=== PATIENT | male | born 1995 | race Caucasian/White ===

== ENCOUNTER 2019-12-11 14:01 | Outpatient (CLI) | payer OTHER, SELFPAY ==
--- NOTE | 2019-12-11 14:09 | XR_ITS ---
WS: [id number] XR foot RT min 3V* [id number] REASON FOR EXAM: right fifth digit pain and swelling FINDINGS: The distal phalanx of the fifth digit proximally shows a small benign cysts. There is soft tissue swelling of the fifth phalanx. The remaining phalanges metatarsals and tarsals were normal. The calcaneus was normal. XR/XR foot RT min 3V* [id number] IMPRESSION: Benign cyst of the distal fifth phalanx Swelling the fifth phalanx No definite fractures or destructive changes.
== END 2019-12-11 14:02 | disposition home or self-care (01) ==
PROVIDERS: PCP Family Medicine; Visit Provider Family Medicine
DX: M79.89 Other specified soft tissue disorders (principal); M85.671 Other cyst of bone, right ankle and foot; M79.674 Pain in right toe(s)
CPT/HCPCS: 73630

== ENCOUNTER 2021-11-28 07:07 | Outpatient (CLI) | payer OTHER, SELFPAY ==
--- NOTE | 2021-11-28 07:20 | USCV_ITS ---
Valente Fagan Age: 26 Gender: M : 1995 Exam Date: 11/28/2021 07:35 Ordering Phys: David Murillo Technologist: CANDY Exam Location: [facility] [place] Indication: abnormal heart beat BP: 130 / 80 HR: 79 Rhythm: Sinus Technical Quality: Adequate MEASUREMENTS (Male / Female) Normal Values 2D ECHO LV Diastolic Diameter PLAX 4.8 cm 4.2 - 5.9 / 3.9 - 5.3 cm LV Systolic Diameter PLAX 3.6 cm IVS Diastolic Thickness 1.2 cm 0.6 - 1.0 / 0.6 - 0.9 cm IVS Systolic Thickness 1.6 cm LVPW Diastolic Thickness 1.1 cm 0.6 - 1.0 / 0.6 - 0.9 cm LVPW Systolic Thickness 1.5 cm LVOT Diameter 2.3 cm LV Ejection Fraction 2D Teich 44.5 % LV Ejection Fraction MOD 2C 66.9 % LV Ejection Fraction 2C AL 67.8 % LA Diameter 2.8 cm Aorta at Sinotubular Diameter 2.6 cm M-MODE Aortic Annulus Diameter 2.9 cm LA Ao Ratio MM 1.3 MV E Point Septal Separation 1.0 cm DOPPLER AV Peak Velocity 82.0 cm/s LVOT Peak Velocity 69.0 cm/s AV Area Cont Eq vti 3.7 cm squared AV Area Cont Eq pk 3.4 cm squared MV Area PHT 4.3 cm squared Mitral E to A Ratio 0.9 MV E' Velocity 28.0 cm/s Mitral E to MV E' Ratio 6.9 Mitral E to LV E' Lateral Ratio 6.8 Mitral E to LV E' Septal Ratio 7.1 TR Peak Velocity 99.0 cm/s TR Peak Gradient 3.9 mmHg Right Atrial Pressure 3.0 mmHg Pulmonary Artery Systolic Pressu 6.9 mmHg PV Peak Velocity 85.0 cm/s FINDINGS Left Ventricle Normal left ventricular size and systolic function, EF 55 %. No regional wall motion abnormalities. Right Ventricle The right ventricle is normal in size and function. Right Atrium The right atrium is normal in size. Left Atrium The left atrium is normal in size. Mitral Valve Trace mitral valve regurgitation. Aortic Valve No gross abnormalities noted Tricuspid Valve Trace to mild tricuspid valve regurgitation. Pulmonic Valve No gross abnormalities noted Pericardium Normal pericardium without effusion. Aorta Normal ascending aorta dimension. CONCLUSIONS Normal left ventricular size and systolic function, EF 55 %. No regional wall motion abnormalities. Trace mitral valve regurgitation. Trace to mild tricuspid valve regurgitation. Estimated pulmonary artery peak systolic pressure was 7 mmHg There is no pericardial effusion. There are no intracardiac masses. No similar studies are available for comparison Dr Kenneth Felix MD FACC (Electronically Signed) Final Date: 28 November 2021 19:13 S
== END 2021-11-28 07:08 | disposition home or self-care (01) ==
PROVIDERS: PCP Clinical Nurse Specialist Adult Health; Visit Provider Clinical Nurse Specialist Adult Health
DX: R00.9 Unspecified abnormalities of heart beat (principal); I08.1 Rheumatic disorders of both mitral and tricuspid valves
CPT/HCPCS: 93306

== ENCOUNTER 2022-10-25 07:49 | Observation (INO) | payer OTHER, SELFPAY ==
[2022-10-25] VITALS (18 sets, daily range): BP systolic 105–136; BP diastolic 65–84; PULSE 78–122; RESP 16–21; TEMP 36.4–36.9; O2SAT 95–100; BMI 24.6; BMI 25.0
--- NOTE | 2022-10-25 07:58 | W.ED.SKABFB ---
HPI - Skin/Abscess/Foreign Bdy General: Chief complaint: Skin/Abscess/Foreign Body Stated complaint: abscess on buttock Time Seen by Provider: 10/25/22 07:58 History of Present Illness: Mr. Fagan is a 27-year-old gentleman without significant past medical history who presents to the emergency department due to concern over anal abscess. He reports first noticing some discomfort approximately 1 week ago and initially thought that he just had hemorrhoids. He subsequently developed worsening symptoms and presented to urgent care and was started on antibiotic for concern of abscess. He has been taking this for 3 days without significant improvement. Intensity of symptoms has worsened. Does note some generalized malaise associated with it. Has not had bowel movement though denies proceeding pain with bowel movements. No history of similar, no reported trauma, denies history of frequent skin infections or diabetes no other specific changes in health, exacerbating, or alleviating factors identified. Onset (ago): week(s) Location: buttocks Severity: moderate Relieving factors: none Exacerbating factors: movement and other (Sitting) Associated symptoms: Reports other (Sweats) Treatments prior to arrival: antibiotic Review of Systems General: Reports: 10 or more systems reviewed and unremarkable except in HPI and below PFSH ED PFSH: Medical History Alcohol abuse Essential hypertension Hyperlipidemia Mitral regurgitation Perianal abscess Tachycardia Tricuspid regurgitation Surgical History No pertinent past surgical history Family History Other CAD (coronary artery disease) Social History Smoking and tobacco status: smoker, details unknown smokeless tobacco Smokeless tobacco user: chewing tobacco Smokeless tobacco details: 1 can perday Alcohol intake: current Alcohol intake frequency: 3 or more drinks per day Alcohol type: beer, hard liquor and other Substance/Drug Use: current Substance/Drug use frequency: Special occassions/opportunity only Substance/Drug use type: Marijuana Physical Exam Const: COMMON NORMALS: alert GENERAL APPEARANCE: cooperative and well developed HENMT: COMMON NORMALS: normocephalic and atraumatic HEAD & SCALP: normocephalic and atraumatic Eye: COMMON NORMALS: conjunctivae normal CONJUNCTIVA: Yes conjunctivae normal SCLERA: sclerae normal Neck/C-Spine: COMMON NORMALS: supple GENERAL: Yes trachea midline Resp: COMMON NORMALS: clear to auscultation bilaterally EFFORT & INSPECTION: Yes able to speak in complete sentences AUSCULTATION: clear to auscultation bilaterally Cardio: COMMON NORMALS: regular rhythm RATE: tachycardic RHYTHM: regular rhythm GI: COMMON NORMALS: Soft to palpation PALPATION: Yes Soft to palpation and No Tenderness to palpation present (GI) : OTHER: Exam performed with aircraft mechanic armament present. There is some induration, tenderness, mild fluctuance left buttock that does extend towards the anus. No erythema or obvious head of abscess. No evidence of soft tissue gas or necrotizing infection Extremity: GENERAL: Yes normal exam except as noted and No edema Neuro: COMMON NORMALS: moves all extremities SENSORIUM/ORIENTATION: Yes alert and No Orientation impaired Psych: COMMON NORMALS: mental status grossly normal and Normal thought process present THOUGHT PROCESS: Normal thought process present Course Vital Signs: Vital signs: Vital Signs Temperature 97.7 F 10/26/22 07:35 Pulse Rate 67 10/26/22 10:23 Respiratory Rate 16 10/26/22 07:35 Blood Pressure 120/70 10/26/22 07:35 Pulse Oximetry 99 10/26/22 10:23 Oxygen Delivery Me thod 10/26/22 08:00 Oxygen Flow Rate 6 10/25/22 16:55 MDM - Skin/Abscess/Foreign Bdy Medicial Decision Making 27-year-old male without significant history presenting with increased pain and failure to improve despite antibiotic treatment with concern for deep infection. Exam as above. Patient mildly ill and initially mildly tachycardic. Labs notable for mild leukocytosis, metabolic panel with perhaps evidence of dehydration/metabolic stress related illness and hypokalemia, elevated ALT of uncertain significance, lactate is normal. CT imaging demonstrates perianal abscess. Antibiotics, fluids, analgesia and antiemetic ordered. Case discussed with general surgery Dr. Bahena and patient to be kept n.p.o., plan for OR drainage. Etiology of patient symptoms is perianal abscess. The results of ED evaluation were discussed with the patient including plan for observation admission due to requirement for level of care not available if discharged to prevent significant worsening/deterioration. Patient agreeable with plan. Patient to be admitted to observation on Dr. Bahena service. Medical Records I reviewed the patient's medical records. Lab Data I reviewed the patient's lab results. 10/25/22 08:21 10/25/22 08:[address] 10/25/22 08:06 IMPRESSION: 1. Moderate-sized abscess centered in the LEFT perineum and contiguous with the anus. Abscess measures 4.8 x 4.6 cm and extends over a length of 9.1 cm. There is mild extension across the midline. 2. No evidence for necrotizing fasciitis. Laboratory Results WBC 12.0 10^3/uL (4.0-10.0) H 10/25/22 08:21 RBC 4.18 10^6/uL (4.1-5.3) 10/25/22 08:21 Hgb 13.4 g/dL (11.7-16.6) 10/25/22 08:21 Hct 38.6 % (42.0-52.0) L 10/25/22 08:21 MCV 92.3 fl (80-94) 10/25/22 08:21 MCH 32.1 pg (28.0-34.0) 10/25/22 08:21 MCHC 34.7 g/dL (30.0-36.0) 10/25/22 08:21 RDW 12.0 % (12.1-15.1) L 10/25/22 08:21 Plt Count 308 10^3/cmm (130-400) 10/25/22 08:21 MPV 9.7 fL (7.4-10.4) 10/25/22 08:21 Neut % (Auto) 75.2 % 10/25/22 08:21 Lymph % (Auto) 11.3 % 10/25/22 08:21 [place] % (Auto) 12.3 % 10/25/22 08:21 Eos % (Auto) 0.4 % 10/25/22 08:21 Baso % (Auto) 0.3 % 10/25/22 08:21 Neut # (Auto) 9.02 10^3/uL (1.8-7.7) H 10/25/22 08:21 Lymph # (Auto) 1.4 10^3/uL (0.8-4.8) 10/25/22 08:21 [place] # (Auto) 1.5 10^3/uL (0.2-0.9) H 10/25/22 08:21 Eos # (Auto) 0.1 10^3/uL (0.0-0.8) 10/25/22 08:21 Baso # (Auto) 0.0 10^3/uL (0.0-0.1) 10/25/22 08:21 Nucleated RBC % (auto) 0 % 10/25/22 08:21 Nucleated RBCs # 0.0 /100WBC 10/25/22 08:21 Sodium 133 mmol/L (136-145) L 10/25/22 08:21 Potassium 3.3 mmol/L (3.5-5.1) L 10/25/22 08:21 Chloride 94 mmol/L (98-107) L 10/25/22 08:21 Carbon Dioxide 23 mmol/L (22-29) 10/25/22 08:21 Anion Gap 19.3 (5-19) H 10/25/22 08:21 BUN 11 mg/dL (6-20) 10/25/22 08:21 Creatinine 0.9 mg/dL (0.7-1.2) 10/25/22 08:21 GFR Calculation 101.2 mL/min (90-130) 10/25/22 08:21 Glucose 98 mg/dL (65-115) 10/25/22 08:21 Calculated Osmolality 275 mOsm/kg (285-295) L 10/25/22 08:21 Lactic Acid 0.8 mmol/L (0.5-2.2) 10/25/22 08:21 Calcium 9.3 mg/dL (8.5-10.5) 10/25/22 08:21 Total Bilirubin 0.6 mg/dL (0.15-1.2) 10/25/22 08:21 AST 31 U/L (0-40) 10/25/22 08:21 ALT 56 U/L (0-41) H 10/25/22 08:21 Alkaline Phosphatase 97 U/L (40-130) 10/25/22 08:21 Total Protein 7.2 g/dL (6.6-8.7) 10/25/22 08:21 Albumin 4.2 g/dL (3.5-5.2) 01/18/23 08:21 Globulin 3.0 g/dL (1.3-4.6) 10/25/22 08:21 Discharge Plan Discharge Patient Disposition: Placed in Observation Admit Provider: Franc Bahena Clinical Impression: Perianal abscess Discharge Diet: Advance as tolerated Discharge Activity: Resume usual activity Coding Level of Care Code ED [employer] Installer for Joe Fwd Exam Comprehensive
--- NOTE | 2022-10-25 08:06 | CT_ITS ---
WS: [id number] CT PELVIS WITH CONTRAST HISTORY: L gluteal and rectal pain, ?deep infection/anorectal abscess TECHNIQUE: Contiguous imaging is performed of the pelvis with contrast. Coronal and sagittal reformat s are reviewed. All CT scans at [facility] use at least one of these dose optimization techni ques: automated exposure control; mA and/or kV adjustment per patient size (includes targeted exams w here dose is matched to clinical indication); or iterative reconstruction. Contrast: Omnipaque 350; 100 mL. DLP: 457.11 mGy.cm COMPARISON: None available. Lobulated mass with peripheral enhancement centered in the LEFT perineum and contiguous with the anus is identified. There is peripheral enhancement. There are small contiguous collections extending int o the perineum and also crossing the midline to the RIGHT. This entire collection extends over a daisy th of 9.1 cm x 4.8 x 4.6 cm. There is soft tissue inflammation extending into the LEFT perineum and s oft tissues of the LEFT buttock. No pelvic adenopathy or fluid is identified. There are a few very small inguinal lymph nodes which ar e normal in appearance. There is no evidence for air within the collection. Small bone islands in the LEFT femur. CT/CT pelvis w con* [id number] IMPRESSION: 1. Moderate-sized abscess centered in the LEFT perineum and contiguous with th e anus. Abscess measures 4.8 x 4.6 cm and extends over a length of 9.1 cm. Ther e is mild extension across the midline. 2. No evidence for necrotizing fasciitis.
[2022-10-25] MEDS: sodium chloride 0.9% 1,000 ML 999 ML IV (08:26)
--- NOTE | 2022-10-25 08:30 | PC.NURSE ---
PT REFUSED PAIN MEDICATION AND ZOFRAN. DR. GRIJALVA GAVE VERBAL ORDER TO HOLD MEDICATION INCASE PT REQUESTS IT.
[2022-10-25 08:38] LABS: Basophils % 0.3 %; Eosinophils # 0.1 10^3/uL (0.0-0.8); Eosinophils % 0.4 %; Hematocrit 38.6 % (42.0-52.0); Hemoglobin 13.4 g/dL (11.7-16.6); Lymphocytes # 1.4 10^3/uL (0.8-4.8); Lymphocytes % 11.3 %; Mean Corpuscular HGB Conc 34.7 g/dL (30.0-36.0); Mean Corpuscular Hemoglobin 32.1 pg (28.0-34.0); Mean Corpuscular Volume 92.3 fl (80-94); Mean Platelet Volume 9.7 fL (7.4-10.4); Monocytes # 1.5 10^3/uL (0.2-0.9); Monocytes % 12.3 %; Neutrophils # 9.02 10^3/uL (1.8-7.7); Neutrophils % 75.2 %; Nucleated Red Blood Cells % 0 %; Platelet Count 308 10^3/cmm (130-400); Red Blood Count 4.18 10^6/uL (4.1-5.3)
[2022-10-25] MEDS: iohexol 350 mg/mL 500 mL Btl (per mL) IV (08:41)
[2022-10-25 08:57] LABS: Lactic Sepsis W/Reflex 0.8 mmol/L (0.5-2.2)
[2022-10-25 08:58] LABS: Alanine Aminotransferase 56 U/L (0-41); Albumin Level 4.2 g/dL (3.5-5.2); Alkaline Phosphatase 97 U/L (40-130); Anion Gap 19.3 (5-19); Aspartate Amino Transferase 31 U/L (0-40); Carbon Dioxide 23 mmol/L (22-29); Chloride 94 mmol/L (98-107); Glucose 98 mg/dL (65-115); Potassium 3.3 mmol/L (3.5-5.1); Sodium 133 mmol/L (136-145); Total Bilirubin 0.6 mg/dL (0.15-1.2); Total Protein 7.2 g/dL (6.6-8.7)
[2022-10-25 09:19] LABS: Blood Urea Nitrogen 11 mg/dL (6-20); Calcium 9.3 mg/dL (8.5-10.5); Osmolality Calculated 275 mOsm/kg (285-295)
[2022-10-25] MEDS: piperacillin-tazobactam 4.5 GM in sodium chloride 0.9% (plus) 50 ML IV (09:21)
[2022-10-25 09:33] LABS: Creatinine Clr Calc Pharmacy 150.8683; Glomerular Filtration Rate 101.2 mL/min (90-130)
--- NOTE | 2022-10-25 09:40 | PC.NURSE ---
DR. GRIJALVA GAVE VERBAL ORDER TO INFUSE VANCOMYCIN FIRST THEN POTASSIUM AFTER THE VANC INFUSION IS DONE. VERBAL ORDER READ BACK AND VERIFIED.
[2022-10-25] MEDS: lidocaine 1% 5 ML in potassium chloride premix 100 ML 52.5 ML IV (12:10)
[2022-10-25] MEDS: sodium chloride 0.9% 1,000 ML 30 ML IV (14:53)
--- NOTE | 2022-10-25 14:55 | PC.NURSE ---
1429, pt left floor for surgery.
--- NOTE | 2022-10-25 15:46 | PM.HP ---
Providers/Chief Complaint Admitting Physician: Franc Bahena DO Primary Care Provider: David Murillo Chief Complaint: abscess on buttock History of Present Illness Valente Fagan is a 27 year old male who presents to the emergency room with a 1 week history of perirectal pain. The pain is sharp and constant and throbbing. The pain does not radiate. Palpation makes the pain worse. Nothing makes pain better. He denies any nausea, vomiting, diarrhea, constipation, hematochezia and/or melena. He has never had this before. Review of Systems General: Reports: 10 or more systems reviewed and unremarkable except in HPI and below Medications/Allergies Home Medications Medication Instructions Recorded Confirmed Last Taken Type clindamycin HCl 300 mg capsule 300 mg PO TID 7 days #21 caps 10/22/22 10/25/22 10/24/22 Rx multivit with minerals-folic 1 cap PO DAILY 10/25/22 10/25/22 Unknown History acid-lycopene 0.4 mg-600 mcg capsule (Men's Daily) Allergies Allergy/AdvReac Type Severity Reaction Status Date / Time No Known Allergies Allergy Verified 10/25/22 09:42 PFSH Acute PFSH: Medical History No pertinent past medical history Surgical History No pertinent past surgical history Family History Other CAD (coronary artery disease) Social History Smoking and tobacco status: never smoked Alcohol intake: current Alcohol intake frequency: 3 or more drinks per day Alcohol type: beer, hard liquor and other Vitals/I&O/Wt Last Vital Signs Temp 98.4 F 10/25/22 14:54 Pulse 105 H 10/25/22 14:54 Resp 18 10/25/22 14:54 BP 111/66 10/25/22 14:54 Pulse Ox 99 10/25/22 14:54 O2 Del Method 10/25/22 14:54 10/25/22 10/25/22 10/25/22 06:59 14:59 22:59 Intake Total 1550 / 1550 Balance 1550 / 1550 Weight last 48 hrs Weight 197 lb 6.4 oz Physical Exam Narrative: General : Patient is well developed , no acute distress, oriented x3 Head : Normal cephalic, a-traumatic. Ears : Pinnae and external canal are normal. Hearing is normal. Eyes : PERRLA, Sclera and injection are normal. No conjunctival discharge. Nose : Mucous membranes are without erythema. Throat : buccal mucosa is normal, gums are without significant recession or hypertrophy. Lungs : Equal chest rise bilaterally, no use of accessory muscles, trachea is midline. Cor : Rate and rhythm are normal. Abdomen : Soft, ND, NT, no g/r/m Rectal: There is induration, fluctuance and erythema the perineum Extremities : No edema, no cyanosis or clubbing, dorsalis pedis pulses are present bilaterally, non-tender to palpation of calves. Upper extremities are normal bilaterally. Back : non-tender to palpation, no CVA tenderness. Neuro : CN II - XII intact, Upper and lower extremities have equal and full strength Data 10/25/22 08:21 10/25/22 08:21 Micro: Microbiology 10/25/22 08:21 Blood Culture - Preliminary Blood SPECIMEN COLLECTED 10/25/22 08:21 Blood Culture - Preliminary Blood SPECIMEN COLLECTED A&P Assessment and plan (1) Perianal abscess: Plan Incision and drainage of perennial abscess The risks and benefits of the procedure, including but not limited to, bleeding, infection, scar, numbness, pain, recurrence, fistula, damage to surrounding structures, incontinence of gas and/or stool, were explained to the patient. He is understanding of the risks and wishes to proceed Attestations Medical Necessity Statement*: Patient will be admitted overnight for IV antibiotics and dressing changes Coding Level of Care Code Acute Code for [facility] Diagnoses Perianal abscess K61.0
--- NOTE | 2022-10-25 16:04 | ANES.PREANE2 ---
Pre-Anesthetic Assessment Height/Weight: Height 1.91 m Weight 89.539 kg Temp Pulse Resp BP Pulse Ox O2 Del Method 98.4 F 105 H 18 111/66 99 10/25/22 14:54 10/25/22 14:54 10/25/22 14:54 10/25/22 14:54 10/25/22 14:54 10/25/22 14:54 Operation Date: 10/25/22 16:00 Proposed Procedures p Incision And Drainage(Not Applicable) - Franc Bahena DO Familial anesthetic complications: none Was Beta Mariano taken within 24 hours: N/A Was Clonidine taken within 24 hours: N/A Social No alcohol and No tobacco Exam alert, oriented x 3, clear to auscultation bilaterally and regular rate & rhythm Airway Submandibular: within normal limits Cervical ROM: within normal limits Mallampati: Class II Dentition: full History/ROS No significant history except as noted Anesthetic Plan ASA status: 1 Anesthesia: General Medications/Allergies Home Medications Medication Instructions Recorded Confirmed Last Taken Type clindamycin HCl 300 mg capsule 300 mg PO TID 7 days #21 caps 10/22/22 10/25/22 10/24/22 Rx multivit with minerals-folic 1 cap PO DAILY 10/25/22 10/25/22 Unknown History acid-lycopene 0.4 mg-600 mcg capsule (Men's Daily) Allergies Allergy/AdvReac Type Severity Reaction Status Date / Time No Known Allergies Allergy Verified 10/25/22 09:42 Current Medications Generic Name Dose Route Start Last Admin Trade Name Freq PRN Reason Stop Dose Admin Sodium Chloride 1,000 mls @ 30 mls/hr 10/25/22 14:45 10/25/22 14:53 Sodium Chloride 0.9% IV 10/26/22 14:44 30 mls/hr .Q24H MICHELLE Administration PFSH Anesthesia Medical History No pertinent past medical history Surgical History No pertinent past surgical history Family History Other CAD (coronary artery disease) Social History Smoking and tobacco status: never smoked Alcohol intake: current Alcohol intake frequency: 3 or more drinks per day Alcohol type: beer, hard liquor and other Data Anesthesia 10/25/22 08:21 10/25/22 08:21 Short CBC 10/25/22 Range/Units 08:21 WBC 12.0 H (4.0-10.0) 10^3/uL Hgb 13.4 (11.7-16.6) g/dL Hct 38.6 L (42.0-52.0) % MCV 92.3 (80-94) fl Plt Count 308 (130-400) 10^3/cmm Neut % (Auto) 75.2 % Neut # (Auto) 9.02 H (1.8-7.7) 10^3/uL BMP 10/25/22 08:21 Sodium 133 L Potassium 3.3 L Chloride 94 L Carbon Dioxide 23 BUN 11 Creatinine 0.9 Glucose 98 Calcium 9.3 Liver Function 10/25/22 Range/Units 08:21 Total Bilirubin 0.6 (0.15-1.2) mg/dL AST 31 (0-40) U/L ALT 56 H (0-41) U/L Alkaline Phosphatase 97 (40-130) U/L Albumin 4.2 (3.5-5.2) g/dL Microbiology 10/25/22 08:21 Blood Culture - Preliminary Blood SPECIMEN COLLECTED 10/25/22 08:21 Blood Culture - Preliminary Blood SPECIMEN COLLECTED Cardiac Studies: Echocardiogram 11/28/21 Holter Monitor 11/14/21
--- NOTE | 2022-10-25 16:59 | PM.OP ---
Operative Report Date of procedure: October 25, 2022 Pre-op diagnosis: Perennial abscess Post-op diagnosis: same Procedure done: Incision and drainage of perennial abscess Implants: Half-inch iodoform packing gauze Specimens removed/disposition: Cultures Surgeon: Dr. Franc Bahena DO Anesthesia: General Estimated blood loss (mL): 10 Complications: None apparent Brief History: This is a very pleasant 27-year-old gentleman who came in with a perineal abscess. Incision and drainage was indicated. The risk and benefits were explained and documented. Procedure: Patient was wheeled in the OR room and placed on the operating table in the lithotomy position. General endotracheal intubation was achieved by department of anesthesia. The perineum was inspected prepped and draped in usual sterile fashion. Timeout was performed. All present were in agreement. 2% lidocaine with epinephrine was used to anesthetize the peritoneum over the area of most fluctuance, just left of midline. A 1.5 cm incision was then made with a #10 blade scalpel. Hemostats were used to probe the abscess cavity and copious amounts of feculent smelling purulence was expelled. Cultures were taken. Abscess cavity was probed and loculations were broken. Abscess cavity was then irrigated with normal saline. Half-inch iodoform gauze was then packed into the wound. Sterile dressings were applied. Patient tolerated the procedure well.
--- NOTE | 2022-10-25 17:27 | ANE.PACU2 ---
Inpatient post-anesthesia follow up: Airway intact: Yes Vital signs: Temperature 97.8 F Pulse Rate 89 Respiratory Rate 16 Blood Pressure 133/79 Pulse Oximetry 95 Oxygen Delivery Me thod [ Room Air Current Rate & Del kenneth] Oxygen Delivery Me thod Room Air Oxygen Flow Rate 6 Fraction of Inspir ed Oxygen Hydration adequate: Yes Nausea and vomiting: No Pain level: 2 Mental status: Baseline
[2022-10-25] MEDS: heparin 5,000 unit/mL INJ 1 mL 5000 UNIT SUBCUT (19:01)
[2022-10-25] MEDS: piperacillin-tazobactam 3.375 GM in sodium chloride 0.9% (plus) 50 ML IV (19:01)
[2022-10-25] MEDS: sodium chloride 0.9% 1,000 ML 150 ML IV (19:01)
[2022-10-25] MEDS: HYDROcodone-acetaminophen 5-325 mg Tablet 1 TAB PO (21:17)
[2022-10-26] VITALS: BP 131/85; PULSE 90; RESP 16; TEMP 36.5; O2SAT 98
[2022-10-26] MEDS: sodium chloride 0.9% 1,000 ML 150 ML IV ×2 (00:27→08:44)
[2022-10-26 01:51] LABS: Basophils % 0.3 %; Hematocrit 37.5 % (42.0-52.0); Hemoglobin 12.9 g/dL (11.7-16.6); Lymphocytes # 0.7 10^3/uL (0.8-4.8); Lymphocytes % 6.5 %; Mean Corpuscular HGB Conc 34.4 g/dL (30.0-36.0); Mean Corpuscular Hemoglobin 32.4 pg (28.0-34.0); Mean Corpuscular Volume 94.2 fl (80-94); Mean Platelet Volume 9.7 fL (7.4-10.4); Monocytes # 0.7 10^3/uL (0.2-0.9); Neutrophils # 8.82 10^3/uL (1.8-7.7); Neutrophils % 85.6 %; Nucleated Red Blood Cells % 0 %; Platelet Count 310 10^3/cmm (130-400); Red Blood Count 3.98 10^6/uL (4.1-5.3); Red Cell Distribution Width 11.9 % (12.1-15.1); White Blood Count 10.3 10^3/uL (4.0-10.0)
[2022-10-26 02:10] LABS: Anion Gap 14.3 (5-19); Blood Urea Nitrogen 10 mg/dL (6-20); Calcium 8.7 mg/dL (8.5-10.5); Carbon Dioxide 23 mmol/L (22-29); Chloride 105 mmol/L (98-107); Glucose 152 mg/dL (65-115); Osmolality Calculated 288 mOsm/kg (285-295); Potassium 4.3 mmol/L (3.5-5.1); Sodium 138 mmol/L (136-145)
[2022-10-26] MEDS: piperacillin-tazobactam 3.375 GM in sodium chloride 0.9% (plus) 50 ML IV (02:41)
--- NOTE | 2022-10-26 02:41 | PC.NURSE ---
Patient refused SCDs, stating they were uncomfortable and made him sweat. SCDs removed.
[2022-10-26 04:00] VITALS: BP 113/71; PULSE 59; RESP 15; TEMP 36.7; O2SAT 97
[2022-10-26] MEDS: heparin 5,000 unit/mL INJ 1 mL 5000 UNIT SUBCUT (05:33)
[2022-10-26] MEDS: HYDROcodone-acetaminophen 5-325 mg Tablet 1 TAB PO ×2 (05:36→09:52)
[2022-10-26 07:35] VITALS: BP 120/70; PULSE 63; RESP 16; TEMP 36.5; O2SAT 96
[2022-10-26 08:00] VITALS: PULSE 67; O2SAT 99
--- NOTE | 2022-10-26 08:37 | PM.DCS ---
Discharge Providers Date of Admission: 10/25/22 09:17 Date of Discharge: October 26, 2022 Attending Provider at Admission: Franc Bahena DO Attending Provider at Discharge: Franc Bahena DO Primary Care Provider: David Murillo Diagnoses at Discharge Discharge Diagnosis (1) Perianal abscess: Status: Acute Reason for Visit Reason for Visit: abscess on buttock Hospital Course Hospital Course This very pleasant 27-year-old gentleman who came in with a perennial abscess. He underwent incision and drainage and was discharged home the next day in good condition. Physical Exam Narrative: General : Patient is well developed , no acute distress, oriented x3 Head : Normal cephalic, a-traumatic. Ears : Pinnae and external canal are normal. Hearing is normal. Eyes : PERRLA, Sclera and injection are normal. No conjunctival discharge. Nose : Mucous membranes are without erythema. Throat : buccal mucosa is normal, gums are without significant recession or hypertrophy. Lungs : Equal chest rise bilaterally, no use of accessory muscles, trachea is midline. Cor : Rate and rhythm are normal. Abdomen : Soft, ND, NT, no g/r/m Skin: Minimal erythema and induration in the perineum Extremities : No edema, no cyanosis or clubbing, dorsalis pedis pulses are present bilaterally, non-tender to palpation of calves. Upper extremities are normal bilaterally. Back : non-tender to palpation, no CVA tenderness. Neuro : CN II - XII intact, Upper and lower extremities have equal and full strength Discharge Data Studies Completed and Pending Completed Studies During Hospitalization Category Date Time Status CT pelvis w con* [id number] Stat Cat Scan 10/25/22 08:06 Completed Pending at discharge Category Date Time Status Abscess Culture and Gram Stain Routine Lab 10/25/22 16:39 Received Blood Culture Stat Lab 10/25/22 08:21 Results Wound Culture and Gram Stain Routine Lab 10/25/22 16:39 Received Radiology Impressions Pelvis CT 10/25/22 08:06 IMPRESSION: 1. Moderate-sized abscess centered in the LEFT perineum and contiguous with the anus. Abscess measures 4.8 x 4.6 cm and extends over a length of 9.1 cm. There is mild extension across the midline. 2. No evidence for necrotizing fasciitis. Laboratory Results WBC 10.3 10^3/uL (4.0-10.0) H 10/26/22 01:33 RBC 3.98 10^6/uL (4.1-5.3) L 10/26/22 01:33 Hgb 12.9 g/dL (11.7-16.6) 10/26/22 01:33 Hct 37.5 % (42.0-52.0) L 10/26/22 01:33 MCV 94.2 fl (80-94) H 10/26/22 01:33 MCH 32.4 pg (28.0-34.0) 10/26/22 01:33 MCHC 34.4 g/dL (30.0-36.0) 10/26/22 01:33 RDW 11.9 % (12.1-15.1) L 10/26/22 01:33 Plt Count 310 10^3/cmm (130-400) 10/26/22 01:33 MPV 9.7 fL (7.4-10.4) 10/26/22 01:33 Neut % (Auto) 85.6 % 10/26/22 01:33 Lymph % (Auto) 6.5 % 10/26/22 01:33 [place] % (Auto) 7.0 % 10/26/22 01:33 Eos % (Auto) 0.0 % 10/26/22 01:33 Baso % (Auto) 0.3 % 10/26/22 01:33 Neut # (Auto) 8.82 10^3/uL (1.8-7.7) H 10/26/22 01:33 Lymph # (Auto) 0.7 10^3/uL (0.8-4.8) L 10/26/22 01:33 [place] # (Auto) 0.7 10^3/uL (0.2-0.9) 10/26/22 01:33 Eos # (Auto) 0.0 10^3/uL (0.0-0.8) 10/26/22 01:33 Baso # (Auto) 0.0 10^3/uL (0.0-0.1) 10/26/22 01:33 Nucleated RBC % (auto) 0 % 10/26/22 01:33 Nucleated RBCs # 0.0 /100WBC 10/26/22 01:33 Sodium 138 mmol/L (136-145) 10/26/22 01:33 Potassium 4.3 mmol/L (3.5-5.1) 10/26/22 01:33 Chloride 105 mmol/L (98-107) 10/26/22 01:33 Carbon Dioxide 23 mmol/L (22-29) 10/26/22 01:33 Anion Gap 14.3 (5-19) 10/26/22 01:33 BUN 10 mg/dL (6-20) 10/26/22 01:33 Creatinine 0.8 mg/dL (0.7-1.2) 10/26/22 01:33 GFR Calculation 116.0 mL/min (90-130) 10/26/22 01:33 Glucose 152 mg/dL (65-115) H 10/26/22 01:33 Calculated Osmolality 288 mOsm/kg (285-295) 10/26/22 01:33 Lactic Acid 0.8 mmol/L (0.5-2.2) 10/25/22 08:21 Calcium 8.7 mg/dL (8.5-10.5) 10/26/22 01:33 Total Bilirubin 0.6 mg/dL (0.15-1.2) 10/25/22 08:21 AST 31 U/L (0-40) 10/25/22 08:21 ALT 56 U/L (0-41) H 10/25/22 08:21 Alkaline Phosphatase 97 U/L (40-130) 10/25/22 08:21 Total Protein 7.2 g/dL (6.6-8.7) 10/25/22 08:21 Albumin 4.2 g/dL (3.5-5.2) 10/25/22 08:21 Globulin 3.0 g/dL (1.3-4.6) 10/25/22 08:21 Procedures Performed Incision and drainage of perineal abscess Vitals Last Vital Signs Temp 97.7 F 10/26/22 07:35 Pulse 63 10/26/22 07:35 Resp 16 10/26/22 07:35 BP 120/70 10/26/22 07:35 Pulse Ox 96 10/26/22 07:35 O2 Del Method 10/26/22 04:00 O2 Flow Rate 6 10/25/22 16:55 Discharge Plan Discharge Patient Disposition: Home Condition: Stable Prescriptions: New hydrocodone-acetaminophen 7.5-325 mg tablet 1 tab PO Q8H PRN (Reason: pain) Qty: 20 0RF amoxicillin-pot clavulanate 875-125 mg tablet 1 tab PO BID 10 Days Qty: 20 0RF Continued Men's Daily 0.4-600 mg-mcg Capsule 1 cap PO DAILY Discontinued clindamycin HCl 300 mg capsule 300 mg PO TID 7 Days Qty: 21 0RF Discharge Orders: Discharge Order (Routine); Ordered 10/26/22 Ordered By: Franc Bahena Referrals: Franc Bahena DO [Physician] - 2 weeks David Murillo NP [Primary Care Provider] - 4-7 days Discharge Diet: Advance as tolerated Discharge Activity: Resume usual activity Patient Instructions: Opioid Safety Activity Restrictions/Additional Instructions: Change dressings with half-inch plain packing gauze 4 x 4 gauze and ABD once daily and after bowel movements Discharge Attestations Time Spent in Discharge Care*: less than 30 min Quality Metrics Clinical Quality Measures [ No reported AMI, CVA or VTE this stay] Coding Level of Care Code Acute g CHERELLE WEEKS note Diagnoses Perianal abscess K61.0
[2022-10-26] MEDS: pantoprazole DR 40 mg Tablet PO (08:45)
[2022-10-26 10:23] VITALS: PULSE 67; O2SAT 99
== END 2022-10-26 10:10 | disposition home or self-care (01) ==
LOC: ER 11:48 → MEDSURG 13:25
PROVIDERS: Admitting Provider Surgery; Emergency Provider Emergency Medicine; PCP Clinical Nurse Specialist Adult Health; Visit Provider Surgery
PROC: (CPT 46050; principal; 2022-10-25 16:00)
DX: K61.0 Anal abscess (principal)
CPT/HCPCS: 46050; 36415; 72193; 80048; 80053; 83605; 85025; 87040; 87070; 87075; 87077; 87186; 87205; 96365; 96366; 96367; 96372; 99285; G0378; J1100; J1644; J1885; J2250; J2405; J2543; J2704; J3010; J3370; J3480; J3490; J7030; J7040; Q9967